=== PATIENT | male | born 1995 | race Caucasian/White ===

== ENCOUNTER 2021-06-10 10:16 | Emergency (ER) | payer OTHER ==
[2021-06-10] MEDS ORDERED: DIFLUCAN150 MG PO (11:45)
[2021-06-10] MEDS ORDERED: SELENIUM SULFI180 M1 TP (11:45)
[2021-06-10] MEDS ORDERED: METROCREAM45 GM TP (11:45)
== END 2021-06-10 13:02 | disposition home or self-care (01) ==
LOC: ER1 10:16
DX: B36.0 Pityriasis versicolor (principal); Z88.0 Allergy status to penicillin; F17.210 Nicotine dependence, cigarettes, uncomplicated
CPT/HCPCS: 99282

== ENCOUNTER 2021-06-19 12:09 | Emergency (ER) | payer OTHER ==
[~2021-06-19 12:09] MED LIST: DIFLUCAN150 MG PO; METROCREAM45 GM TP; SELENIUM SULFI180 M1 TP
[2021-06-19 14:14] LABS: HEMOGLOBIN 14.5 gm/dl (14.0-17.5); RED BLOOD COUNT 4.35 M/UL (4.20-5.50); WHITE BLOOD COUNT 11.4 K/UL (4.5-11.0)
[2021-06-19 14:30] LABS: BUN/CREATININE RATIO 18 (0-10)
[2021-06-19] MEDS ORDERED: VIBRAMYCIN100 MG PO (16:03)
== END 2021-06-19 16:53 | disposition home or self-care (01) ==
LOC: ER1 12:09
PROVIDERS: Physician Assistant
DX: R55 Syncope and collapse (principal); J18.9 Pneumonia, unspecified organism; F17.200 Nicotine dependence, unspecified, uncomplicated; Z88.0 Allergy status to penicillin
CPT/HCPCS: 71045; 80053; 82550; 82553; 83874; 84484; 85025; 93005; 99284

== ENCOUNTER 2021-07-09 09:25 | Emergency (ER) | payer OTHER ==
[~2021-07-09 09:25] MED LIST changes: +VIBRAMYCIN100 MG PO
== END 2021-07-09 10:30 | disposition home or self-care (01) ==
LOC: ER1 09:25
DX: F41.9 Anxiety disorder, unspecified (principal); F17.200 Nicotine dependence, unspecified, uncomplicated; Z88.0 Allergy status to penicillin
CPT/HCPCS: 99284

== ENCOUNTER 2021-07-16 19:32 | Emergency (ER) | payer OTHER ==
[2021-07-17 01:21] LABS: HEMOGLOBIN 15.4 gm/dl (14.0-17.5); RED BLOOD COUNT 4.72 M/UL (4.20-5.50); WHITE BLOOD COUNT 13.5 K/UL (4.5-11.0)
[2021-07-17 01:54] LABS: BUN/CREATININE RATIO 19 (0-10)
[2021-07-17] MEDS ORDERED: OMNICEF 300 MG300 MG PO (03:56)
[2021-07-17] MEDS ORDERED: VENTOLIN HFA 66.7 GM INH (03:56)
[2021-07-17] MEDS ORDERED: PREDNISONE 50 M50 MG PO (03:56)
== END 2021-07-17 04:50 | disposition home or self-care (01) ==
LOC: ER1 19:32
PROVIDERS: Physician Assistant
DX: R05 Cough (principal); R06.00 Dyspnea, unspecified; Z88.0 Allergy status to penicillin; F17.290 Nicotine dependence, other tobacco product, uncomplicated; Z20.822 Contact with and (suspected) exposure to COVID-19
CPT/HCPCS: 71045; 80053; 85025; 99285; U0002